=== PATIENT | male | born 1990 ===

== ENCOUNTER 2018-04-11 12:21 | Emergency (ER) | payer OTHER ==
[~2018-04-11] VITALS: Ht 165.1 cm; Wt 63.5 kg
[~2018-04-11 12:21] MED LIST: IBUP600 PO
== END 2018-04-11 12:45 | disposition home or self-care (01) ==
LOC: ER 12:21
DX: S61.011A Laceration without foreign body of right thumb without damage to nail, initial encounter (principal); Z23 Encounter for immunization; W26.0XXA Contact with knife, initial encounter
CPT/HCPCS: 90714